=== PATIENT | male | born 1980 | race Caucasian/White ===

== ENCOUNTER 2019-11-16 10:49 | Emergency (ER) | payer OTHER ==
[~2019-11-16] VITALS: Ht 185.4 cm; Wt 84.8 kg
[~2019-11-16 10:49] MED LIST: TIROSINT100 MCG PO
[2019-11-16] MEDS ORDERED: AUGMENTIN 875-1 EACH PO (11:23)
== END 2019-11-16 12:03 | disposition home or self-care (01) ==
LOC: ED 10:49
DX: S41.151A Open bite of right upper arm, initial encounter (principal); S71.151A Open bite, right thigh, initial encounter; S81.851A Open bite, right lower leg, initial encounter; W54.0XXA Bitten by dog, initial encounter; Z79.899 Other long term (current) drug therapy
CPT/HCPCS: 99283